=== PATIENT | male | born 1980 ===

== ENCOUNTER 2017-06-19 09:13 | Emergency (ER) | payer MEDICAID ==
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
[2017-06-19] MEDS ORDERED: IBUPROFEN 600 MG TAB PO ONE (11:00)
[2017-06-19] MEDS ORDERED: IBUPROFEN 200 MG TAB PO ONE (11:09)
[2017-06-19 11:18] LABS: % IMMATURE GRANULYOCYTES 0.6 % (0.0-1.1); ABSOLUTE IMMATURE GRANULOCYTES 0.07 10^3/uL (0.00-0.10); ADD DIFF? NO; ADD MORPH? NO; ADD SCAN? NO; ATYPICAL LYMPHOCYTE FLAG 80 (0-99); FRAGMENT RBC FLAG 20 (0-99); HEMATOCRIT 44.5 % (40.0-51.0); HEMOGLOBIN 14.9 g/dL (13.7-17.5); LEFT SHIFT FLG 40 (0-99); LIPEMIA HEMOLYSIS FLAG 80 (0-99); MEAN CELL HEMOGLOBIN CONCENTR. 33.5 g/dL (32.4-36.7); MEAN CELL VOLUME 77.5 fL (81.5-99.8); MEAN PLATELET VOLUME 11.2 fL (8.7-11.7); PLATELET CLUMPS FLAG 10 (0-99); PLATELET COUNT 146 10^3/uL (150-400); RED BLOOD CELL COUNT 5.74 10^6/uL (4.40-6.38); RED CELL DISTRIBUTION WIDTH 17.4 % (11.5-15.2)
[2017-06-19 11:34] LABS: ANION GAP 11 mEq/L (8-16); CALCIUM 8.5 mg/dL (8.5-10.4); CARBON DIOXIDE 23 mEq/l (22-31); CHLORIDE 102 mEq/L (97-110); CREATININE 0.7 mg/dL (0.7-1.3); ETHANOL SERUM < 10 mg/dL (0-10); GLOMERULAR FILTRATION RATE > 60; GLUCOSE 96 mg/dL (70-100); POTASSIUM 4.2 mEq/L (3.5-5.2); SALICYLATE 3.8 mg/dL (2.0-20.0); SODIUM 136 mEq/L (134-144)
[2017-06-19] MEDS ORDERED: OLANZapine DISINTEGR 10 MG TAB PO ONE (17:56)
[2017-06-20 00:24] VITALS: TEMP 98.2; O2SAT 94
[2017-06-20 02:17] VITALS: BP 104/62; PULSE 88; RESP 18
== END 2017-06-20 02:17 | disposition short-term general hospital (02) ==
DX: R45.851 Suicidal ideations (principal); F20.0 Paranoid schizophrenia; F17.200 Nicotine dependence, unspecified, uncomplicated
CPT/HCPCS: 80305; G0480

== ENCOUNTER 2017-09-03 10:08 | Emergency (ER) | payer MEDICAID ==
[2017-09-03 10:21] VITALS: BP 114/72; PULSE 89; RESP 18; TEMP 97.7; O2SAT 97
[2017-09-03] MEDS ORDERED: TDAP ADULT 0.5 ML INJ (BOOSTRIX) IM ONE (10:51)
--- NOTE | 2017-09-03 10:51 | EDPHY ---
General - History Smoking Status: Current every day smoker Narrative: CHIEF COMPLAINT: Hand infection HISTORY OF PRESENT ILLNESS: Patient complains of infection on the back of his right hand. Says this has been present for 2-3 weeks. He accidentally scraped the hand on a piece of glass. At that time he irrigated but did not seek any medical attention. It has been present ever since. It does drain at times. He has some pain that radiates up the arm. Tingling at the site. No difficulty bending or straightening the fingers. No difficulty bending or straightening the wrist. No fever. No systemic illness complaints. No other associated complaints or modifying factors. Unsure when his tetanus was last updated. TIME OF INJURY: Two weeks ago TETANUS STATUS: Uncertain MEDICAL/SURGICAL/SOCIAL HISTORY: Denies any medical history. Currently living in the [facility] REVIEW OF SYSTEMS: Ten systems reviewed and are negative unless otherwise noted in the HPI EXAMINATION General Appearance: Alert, no distress Head: normocephalic, atraumatic Cardiovascular: Symmetric radial pulses 2+. Brisk cap refill in all fingers on the right hand. Neurological: A&O, light sensation to the back of both hands is symmetric. Interossei strength symmetric Skin: Warm and dry, no rash. Superficial area of fluctuance over the dorsum of the right hand overlying the 4th and 5th metacarpals. Mild surrounding erythema. No extensive hand cellulitis. No streaking of the hand or wrist. Extremities: Mild tenderness over the area of fluctuance. There is full flexion extension of the fingers of the right hand without difficulty. DIFFERENTIAL DIAGNOSES: Including but not limited to hand abscess, cellulitis, tenosynovitis MDM: 10:50 a.m. Complains of possible infection on the back of the right hand due to lacerations sustained 2 weeks ago. He does seem to have a very small abscess. There is no hand cellulitis. No evidence of flexor tenosynovitis. Full range of motion intact. I have ordered an x-ray of the hand looked for foreign body. I will anesthetize and drain. Bactrim ordered. Tdap ordered. No acute distress. Neuro intact. 12:00 p.m. Superficial abscess to the right hand over the dorsum. No cellulitis. No evidence of tenosynovitis. Full range of motion without difficulty. X-rays unremarkable as read by me. Wound care discussed. Wound recheck in 48 hr here. ED precautions discussed. I provided the information for [facility] from contact him to establish follow-up palpation early next week. He is comfortable with this plan and discharged home stable condition. PROCEDURE: Incision and Drainage Consent: Verbal Location: Dorsum of the right hand Length: 2 cm Complexity: Simple Anesthesia: Local per 1% lidocaine plain. 5 mL Procedure description: After good anesthesia, the hand was prepped with Betadine. There was an eschar that was the removed. There was some expression of purulence. No bleeding. Tolerated well. Irrigated with 20 cc sterile saline. Expressed: 2 mL, purulent Wound care: Routine as discussed Follow-up: 48 hr wound check SUPERVISION: This patient was independently evaluated without direct involvement of or examination by the attending physician. ED Precautions: Worsening pain. Erythema, edema, cyanosis, pallor, paresthesia or anesthesia. (Garry Ceballos) Medical Decision Making: PHYSICIAN DOCUMENTATION: The patient was evaluated and managed by the Physician General Intern. My co- signature indicates that I have reviewed this chart and I agree with the findings and plan of care as documented. I am the secondary supervising physician. (Bradly Elmore) - Diagnostics Imaging Results: Imaging Impressions Hand X-Ray 09/03/17 10:51 Impression: No evidence of osteomyelitis or bone lesion. - Objective Vital Signs: Initial Vital Signs Temperature (C) 97.7 F 09/03/17 10:14 Heart Rate 89 09/03/17 10:14 Respiratory Rate 18 09/03/17 10:14 Blood Pressure 114/72 09/03/17 10:14 O2 Sat (%) 97 09/03/17 10:14 O2 Delivery Mode Room Air Allergies/Adverse Reactions: No Known Allergies Allergy (Unverified 06/19/17 09:18) Home Medications: Medication Instructions Recorded Acetaminophen/Codeine 300/30Mg 1 each PO Q6 PRN #7 tab 09/03/17 [Tylenol #3 (*)] Cephalexin [Keflex (*)] 500 mg PO QID #40 cap 09/03/17 Sulfamethox/Tmp 800/160 mg 1 tab PO BID 10 Days tab 09/03/17 [Bactrim Ds] Medications Given: Discontinued Medications Diphtheria/Tetanus/Acell Pertussis (Boostrix) 0.5 ml IM .ONCE ONE Stop: 09/03/17 10:52 Last Admin: 09/03/17 11:44 Dose: 0.5 ml Trimethoprim/Sulfamethoxazole (Bactrim Ds) 1 ea PO EDNOW ONE PRN Reason: Protocol Stop: 09/03/17 10:53 Last Admin: 09/03/17 11:43 Dose: 1 ea Departure - Departure Disposition: Home, Routine, Self-Care Clinical Impression: Abscess, hand Condition: Good Instructions: Abscess (ED) Additional Instructions: 1. Medications as prescribed to completion 2. Contact this clinic established an for follow-up care early next week 3. ED precautions for worsening pain, redness, warmth, purulence 4. Recommend return to ED in 20-48 hours for recheck Referrals: [facility],. [Clinic] - As per Instructions Prescriptions: Acetaminophen/Codeine 300/30Mg [Tylenol #3 (*)] 1 each PO Q6 PRN #7 tab PRN Reason: Pain, Mild Cephalexin [Keflex (*)] 500 mg PO QID #40 cap Sulfamethox/Tmp 800/160 mg [Bactrim Ds] 1 tab PO BID 10 Days tab
[2017-09-03] MEDS ORDERED: SULFAMETHOX/TMP 800/160 MG 1 TAB PO ONE (10:52)
--- NOTE | 2017-09-03 12:55 | ASDISCHSUM ---
Discharge Information Plan Status:Homeless/Senior Care Medically Cleared to Leave: Discharge Date:09/03/2017 12:44 PM D/C Disposition:Streets (Homeless) ADT D/C Disposition:Home, Routine, Self-Care Projected Discharge Date:09/03/2017 12:44 PM Transportation at D/C:Self Discharge Delay Reason: Follow-Up Date:09/03/2017 12:44 PM Discharge Slot: Final Diagnosis: Placement Information Patient Contact Information Contact Name:KATIENEENA Relationship:Self Address:[address] Home Phone: Work Phone: City:[place] Alternate Phone: State/[place] Code:[place] [address] Email: Financial Information Financial Class: Primary Plan Desc:MEDICAID [facility] [employer] Primary Plan Number:[id number] Secondary Plan Desc: Secondary Plan Number: Assessment Information [facility] CM Progress Note CM Note CM Note Notes: Spoke with patient and he will be able to pick his filled prescriptions up at the [facility] here on the [facility] campus. Prescriptions were filled through his Medicaid and there is no co-pay to him. Patient is homeless and moved here recently from [place]. Patient states he has been through the [employer] program and has been staying at the [facility]. Patient states he has been assisted with obtaining a new I.D. and is just waiting on "the paperwork to go through." Patient does not have a cell phone or any other way to be reached. Patient provided information including homeless drop-in hours at [facility]. Patient states he will make a follow-up appointment this next week. CM available for further assistance. Date Signed: 09/03/2017 12:53 PM Electronically Signed By:Katherine Green RN LACE LACE Acuity / Level of Care Answers: No. Emergency dept visits in Answers: 2 last 6 months Score: 2 Date Signed: 09/03/2017 12:53 PM Electronically Signed By:Katherine Green RN Intervention Information Intervention Type:Medication Date of Service:09/03/2017 12:54 PM Patient Type:Emergency Room Staff Member:QUINTEN Green, Katherine Hours:0.25 Discipline:Last Chalker Severity: Comment:Faxed prescriptions and patient's Medi caid info. to [facility] Hue; patient to [facility] k up prescriptions.
== END 2017-09-03 12:44 | disposition home or self-care (01) ==
DX: L02.511 Cutaneous abscess of right hand (principal); F17.200 Nicotine dependence, unspecified, uncomplicated; Z23 Encounter for immunization

== ENCOUNTER 2017-09-05 07:46 | Emergency (ER) | payer MEDICAID ==
[2017-09-05 07:52] VITALS: BP 121/79; PULSE 77; RESP 16; TEMP 97.5; O2SAT 96
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
== END 2017-09-05 08:08 | disposition home or self-care (01) ==
DX: Z48.01 Encounter for change or removal of surgical wound dressing (principal); F17.200 Nicotine dependence, unspecified, uncomplicated
CPT/HCPCS: G0463

== ENCOUNTER 2017-09-07 07:06 | Emergency (ER) | payer MEDICAID ==
--- NOTE | 2017-09-07 07:10 | EDPHY ---
HPI/HX/ROS/PE/MDM Narrative: CHIEF COMPLAINT: Nausea, vomiting, diarrhea HPI: The patient is a 37 y/o male with a history of HIV arriving via EMS, complaining of nausea, vomiting, and diarrhea onset 03:00, 4 hours ago. On 09/03 he was seen in this ED for a right hand infection and placed on Bactrim. There have been other [facility] at the [facility] with his current similar symptoms. While en route to the hospital he was given 4mg IV Zofran. Denies abdominal pain but is having stomach cramps. Denies having his CD4 count checked in years or taking medications for HIV. Denies fever, chest pain, urinary complaints, paresthesias or other pertinent symptoms. REVIEW OF SYSTEMS: Aside from elements discussed in the HPI, a comprehensive 10-point review of systems was reviewed and is negative. PMH: HIV SOCIAL HISTORY: Transient, single, smoker PHYSICAL EXAM: General: Patient is alert, in no acute distress. ENT: Eyes are normal to inspection. ENT inspection normal. Neck: Normal inspection. Full range of motion. Respiratory: No respiratory distress. Breath sounds normal bilaterally. Cardiovascular: Regular rate and rhythm. Strong peripheral pulses. Normal cap refill. Abdomen: The abdomen is nontender to palpation. There are no peritoneal signs. There are normal bowel sounds. Back: Normal to inspection. No tenderness to palpation. Skin: Normal color. No rash. Warm and dry. Extremities: Normal appearance. Full range of motion. Neuro: Oriented x3. Normal motor function. Normal sensory function. Portions of this note were transcribed by an ED scribe. I personally performed the history, physical exam, and medical decision making; and confirm the accuracy of the information in the transcribed note. ED Course: 1150: Patient has been unable to provide a stool sample for 5 hours. He will discharged with an appointment at the [facility] on 10/03/16. Return precautions provided; patient is comfortable with this plan. MDM: This patient presents to the ED with signs and symptoms of gastroenteritis, and we have seen many people from the same [facility] this morning who have similar symptoms, so I highly suspect this represents a viral process. Complicating his presentation, the patient tells me that he has completely uncontrolled HIV which of note, was apparently not mentioned to staff on multiple recent ED visits. He was also recently treated with antibiotics for a skin infection which has resolved, yet increases his risk for C.diff. Workup in the ED is negative, and abdomen is benign. My plan was to obtain a stool sample to confirm suspicion of viral diagnosis and rule out C.diff, but patient has been unable to provide a stool sample for approximately 5 hours, and is tolerating food and fluids without difficulty. I think that fact in itself makes C.diff and other serious abdominal pathology unlikely, and I believe patient can be discharged safely and worked up as an outpatient. - Data Points Laboratory Results: Laboratory Results 09/07/17 07:00 09/07/17 07:00 09/07/17 09/07/17 09/07/17 07:00 07:00 07:00 WBC 10.34 10^3/uL H 10^3/uL (3.80-9.50) RBC 6.21 10^6/uL 10^6/uL (4.40-6.38) Hgb 16.5 g/dL g/dL (13.7-17.5) Hct 48.2 % % (40.0-51.0) MCV 77.6 fL L fL (81.5-99.8) MCH 26.6 pg L pg (27.9-34.1) MCHC 34.2 g/dL g/dL (32.4-36.7) RDW 16.6 % H % (11.5-15.2) Plt Count 237 10^3/uL 10^3/uL (150-400) MPV 9.8 fL fL (8.7-11.7) Neut % (Auto) 78.5 % H % (39.3-74.2) Lymph % (Auto) 13.2 % L % (15.0-45.0) Kendall % (Auto) 6.5 % % (4.5-13.0) Eos % (Auto) 0.9 % % (0.6-7.6) Baso % (Auto) 0.3 % % (0.3-1.7) Nucleat RBC Rel Count 0.0 % % (0.0-0.2) Absolute Neuts (auto) 8.13 10^3/uL H 10^3/uL (1.70-6.50) Absolute Lymphs (auto) 1.36 10^3/uL 10^3/uL (1.00-3.00) Absolute Monos (auto) 0.67 10^3/uL 10^3/uL (0.30-0.80) Absolute Eos (auto) 0.09 10^3/uL 10^3/uL (0.03-0.40) Absolute Basos (auto) 0.03 10^3/uL 10^3/uL (0.02-0.10) Absolute Nucleated RBC 0.00 10^3/uL 10^3/uL (0-0.01) Immature Gran % 0.6 % % (0.0-1.1) Immature Gran # 0.06 10^3/uL 10^3/uL (0.00-0.10) Sodium 144 mEq/L mEq/L (134-144) Potassium 4.8 mEq/L mEq/L (3.5-5.2) Chloride 106 mEq/L mEq/L (97-110) Carbon Dioxide 22 mEq/l mEq/l (22-31) Anion Gap 16 mEq/L mEq/L (8-16) BUN 21 mg/dL mg/dL (7-23) Creatinine 0.9 mg/dL mg/dL (0.7-1.3) Estimated GFR > 60 Glucose 106 mg/dL H mg/dL (70-100) Calcium 9.9 mg/dL mg/dL (8.5-10.4) Absolute Lymphocytes Pending Comments Pending % CD3 Cells Pending Absolute CD3 Count Pending % CD4 Cells Pending Absolute CD4 Count Pending T-Help/Suppress Ratio Pending % CD8 Cells Pending Absolute CD8 Count Pending Medications Given: Discontinued Medications Sodium Chloride (Ns) 1,000 mls @ 0 mls/hr IV EDNOW ONE; Wide Open PRN Reason: Protocol Stop: 09/07/17 07:12 Last Admin: 09/07/17 07:55 Dose: 1,000 mls General Time Seen by Provider: 09/07/17 07:07 Initial Vital Signs: Initial Vital Signs Temperature (C) 36.9 C 09/07/17 07:06 Heart Rate 85 09/07/17 07:06 Respiratory Rate 18 09/07/17 07:06 Blood Pressure 123/89 H 09/07/17 07:06 O2 Sat (%) 98 09/07/17 07:06 O2 Delivery Mode Room Air Allergies/Adverse Reactions: No Known Allergies Allergy (Unverified 06/19/17 09:18) Home Medications: Medication Instructions Recorded Cephalexin [Keflex (*)] 500 mg PO QID #40 cap 09/03/17 Sulfamethox/Tmp 800/160 mg 1 tab PO BID 10 Days tab 09/03/17 [Bactrim Ds] Departure - Departure Disposition: Home, Routine, Self-Care Clinical Impression: HIV (human immunodeficiency virus infection), Vomiting Condition: Good Instructions: Acute Nausea and Vomiting (ED), HIV Infection (ED) Additional Instructions: On 09/23/17, you have an appointment at 10:25 am at the [facility]. Please follow up with them. Return to the Emergency Department for fever, chest pain, shortness of breath, increasing pain, or other worsening of condition. Referrals: [facility],. [Clinic] - As per Instructions Report Scribed for: Dusty De La Rosa Report Scribed by: Kaylen Phelan Date of Report: 09/07/17 Time of Report: 07:10
[2017-09-07] MEDS ORDERED: NS 1,000 ML IV ONE (07:11)
[2017-09-07 07:24] LABS: % IMMATURE GRANULYOCYTES 0.6 % (0.0-1.1); ABSOLUTE IMMATURE GRANULOCYTES 0.06 10^3/uL (0.00-0.10); ADD DIFF? NO; ADD MORPH? NO; ADD SCAN? NO; ATYPICAL LYMPHOCYTE FLAG 30 (0-99); FRAGMENT RBC FLAG 0 (0-99); HEMATOCRIT 48.2 % (40.0-51.0); HEMOGLOBIN 16.5 g/dL (13.7-17.5); LEFT SHIFT FLG 10 (0-99); LIPEMIA HEMOLYSIS FLAG 90 (0-99); MEAN CELL HEMOGLOBIN 26.6 pg (27.9-34.1); MEAN CELL HEMOGLOBIN CONCENTR. 34.2 g/dL (32.4-36.7); MEAN CELL VOLUME 77.6 fL (81.5-99.8); MEAN PLATELET VOLUME 9.8 fL (8.7-11.7); PLATELET CLUMPS FLAG 10 (0-99); PLATELET COUNT 237 10^3/uL (150-400); RED BLOOD CELL COUNT 6.21 10^6/uL (4.40-6.38); RED CELL DISTRIBUTION WIDTH 16.6 % (11.5-15.2)
[2017-09-07 07:59] LABS: ANION GAP 16 mEq/L (8-16); CALCIUM 9.9 mg/dL (8.5-10.4); CARBON DIOXIDE 22 mEq/l (22-31); CHLORIDE 106 mEq/L (97-110); CREATININE 0.9 mg/dL (0.7-1.3); GLOMERULAR FILTRATION RATE > 60; GLUCOSE 106 mg/dL (70-100); POTASSIUM 4.8 mEq/L (3.5-5.2); SODIUM 144 mEq/L (134-144)
[2017-09-07 10:58] VITALS: PULSE 79; O2SAT 96
[2017-09-07 12:12] VITALS: BP 133/65; RESP 18; TEMP 98.6
--- NOTE | 2017-09-07 12:24 | ASMTCMCOM ---
CM Note CM Note Notes: ED RN Magdalena informed the SW that pt was sleeping in room an had not provided a stool sample -being discharge. Pt. again questioned obtaining a hotel room because he is from out of town. When informed that it was not a possibility he requested a bus pass. Local bus passes were not available and no passes were provided. Date Signed: 09/07/2017 12:24 PM Electronically Signed By:Anthony Hurtado LCSW
[2017-09-09 14:54] LABS: %CD3 (T CELLS) 74 % (58-86)
== END 2017-09-07 12:21 | disposition home or self-care (01) ==
LOC: EDUNIT#
DX: B20 Human immunodeficiency virus [HIV] disease (principal); F17.200 Nicotine dependence, unspecified, uncomplicated; E86.9 Volume depletion, unspecified
CPT/HCPCS: 86359-90; 86360-90

== ENCOUNTER 2017-09-18 17:01 | Emergency (ER) | payer MEDICAID ==
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
[2017-09-18 17:07] VITALS: BP 118/96; PULSE 117; RESP 16; TEMP 98.1; O2SAT 97
[2017-09-18] MEDS ORDERED: KETOROLAC 30 MG/1 ML SDV IM ONE (17:27)
== END 2017-09-18 17:39 | disposition home or self-care (01) ==
DX: M25.572 Pain in left ankle and joints of left foot (principal); G89.29 Other chronic pain; F17.200 Nicotine dependence, unspecified, uncomplicated; J45.909 Unspecified asthma, uncomplicated; B20 Human immunodeficiency virus [HIV] disease
CPT/HCPCS: J1885